=== PATIENT | male | born 1960 | race Two or more races ===

== ENCOUNTER 2025-01-05 08:48 | Outpatient (CLI) | payer BC | END 2025-01-05 08:49 | disposition home or self-care (01) | LOC: NUCLEAR 08:48 | DX: I34.1 Nonrheumatic mitral (valve) prolapse (principal) ==

== ENCOUNTER → 2025-01-05 | Outpatient (CLI) | payer BC | END | disposition home or self-care (01) | LOC: MRI 01-02 10:27 | DX: M25.552 Pain in left hip (principal) | CPT/HCPCS: 73721 ==

== ENCOUNTER 2025-01-16 13:41 | Outpatient (CLI) | payer BC | END 2025-01-16 13:42 | disposition home or self-care (01) | LOC: NUCLEAR 13:41 | PROVIDERS: ATTEND Family Medicine | DX: I10 Essential (primary) hypertension (principal); M81.0 Age-related osteoporosis without current pathological fracture ==